=== PATIENT | female | born 1950 | race Caucasian/White ===

== ENCOUNTER 2020-07-22 09:15 | Day surgery (SDC) | payer OTHER ==
[~2020-07-22] VITALS: Ht 152.4 cm; Wt 66.5 kg
[~2020-07-22 09:15] MED LIST: CALCIUM MAGNES1 EAC1; CULTURELLE KID1 EA10; ERGO400; FISH OIL 1,2001 EAC7; LEVSOD50; PROG100; TESTOSTERONE2.5 GM; UBID10
== END 2020-07-22 12:00 | disposition home or self-care (01) ==
LOC: ORSCSDS 09:15
PROVIDERS: Internal Medicine Gastroenterology
PROC: 0DJD8ZZ Inspection of Lower Intestinal Tract, Via Natural or Artificial Opening Endoscopic (ICD-10-PCS; principal; 2020-07-22 10:30)
DX: Z12.11 Encounter for screening for malignant neoplasm of colon (principal); K57.30 Diverticulosis of large intestine without perforation or abscess without bleeding; Z86.010 Personal history of colon polyps; Z79.899 Other long term (current) drug therapy
CPT/HCPCS: J2704; J7120

== ENCOUNTER 2021-05-23 06:07 | Day surgery (SDC) | payer OTHER ==
[~2021-05-23] VITALS: Ht 154.9 cm; Wt 70.0 kg
--- NOTE | 2021-05-23 07:50 | NUR ---
05/23/21 0750 Maxim Day BUPIVACAINE 0.5% 30 MLS MIXED WITH EPI 0.15 PER ORDER TO MAKE BUPIVACAINE 0.5% 1:200,000 FOR INJECTION AT OPSITE BY DR CEJA. 30 MLS INJECTED.
== END 2021-05-23 12:43 | disposition home or self-care (01) ==
LOC: ORSCSDS 06:07
PROVIDERS: Podiatrist Foot & Ankle Surgery
PROC: 0SGH04Z Fusion of Right Tarsal Joint with Internal Fixation Device, Open Approach (ICD-10-PCS; principal; 2021-05-23 07:30)
DX: M20.11 Hallux valgus (acquired), right foot (principal); E78.5 Hyperlipidemia, unspecified; E03.9 Hypothyroidism, unspecified; Z79.899 Other long term (current) drug therapy
CPT/HCPCS: C1776; J0171; J0690; J1100; J2250; J2405; J2550; J2704; J2765; J3010; J7120